=== PATIENT | female | born 1965 | race Two or more races ===

== ENCOUNTER 2025-07-23 08:32 | Emergency (ER) | payer OTHER ==
[~2025-07-23] VITALS: Ht 160 cm; Wt 99.8 kg
[2025-07-23 08:57] LABS: PLATELET COUNT (AUTO) 296 K/uL (150-450); RED BLOOD CELL COUNT(AUTO) 4.34 MIL/uL (4.0-5.2); RED CELL DISTRIBUTION WIDTH 13.4 % (11.5-15.0); WHITE BLOOD COUNT (AUTO) 7.5 K/uL (4.3-11.0)
[2025-07-23] MEDS: IV NS 0.9% 500 ML BAG IV ONE (09:02)
[2025-07-23 09:18] LABS: ASPARTATE AMINOTRANSFERASE 19.0 U/L (15-37); CALCIUM, SERUM 8.9 mg/dL (8.5-10.1); CREATININE 0.7 mg/dL (0.6-1.3); SODIUM SERUM 140.0 mmol/L (136-145); TOTAL PROTEIN, SERUM 7.3 g/dL (6.4-8.2); UREA NITROGEN, BLOOD 17.0 mg/dL (7-18)
[2025-07-23] MEDS ORDERED: ONDANSETRON HCL/PF 4 MG/2 ML VIAL ONE (09:19)
[2025-07-23] MEDS ORDERED: MORPHINE SULFATE INJ 4 MG/ML DISP.SYRIN ONE ×2 (09:19→09:57)
[2025-07-23] MEDS: ONDANSETRON HCL/PF 4 MG/2 ML VIAL IVP ONE (09:27)
[2025-07-23] MEDS: MORPHINE SULFATE INJ 2 MG/ML DISP.SYRIN IV ONE ×2 (09:33→10:11)
[2025-07-23 10:04] LABS: APPEARANCE,URINE CLEAR (CLEAR); BLOOD, URINE 2+ Ery/uL (NEGATIVE); LEUKOCYTE ESTERASE ,URINE 1+ (NEGATIVE); NITRITE, URINE NEGATIVE (NEGATIVE); UGLUCOSE NEGATIVE (NEGATIVE)
[2025-07-23 10:06] LABS: ADD URINE CULTURE YES; SQUAMOUS EPITHELIAL CELL,UR Few /HPF (None Seen)
[2025-07-23] MEDS ORDERED: CEFTRIAXONE 1GM BAG (ER ONLY) 50 ML IV ONE (10:26)
[2025-07-23] MEDS: CEFTRIAXONE 1GM BAG (ER ONLY) 1 GM/50 ML PIGGYBACK IV ONE (10:29)
[2025-07-23] MEDS ORDERED: MORPHINE SULFATE INJ 2 MG/ML DISP.SYRIN IV PRN (12:30)
[2025-07-23] MEDS ORDERED: hydrALAZINE HCL IV 20 MG VIAL IV PRN (12:30)
[2025-07-23] MEDS ORDERED: ONDANSETRON HCL/PF 4 MG/2 ML VIAL IVP PRN (12:30)
[2025-07-23] MEDS ORDERED: ACETAMINOPHEN 325 MG TABLET PO PRN (12:30)
[2025-07-23] MEDS ORDERED: IV NS 0.9% 1,000 ML IV SCH (12:30)
[2025-07-23] MEDS ORDERED: FLUT1DIS5 INH (12:50)
[2025-07-23] MEDS ORDERED: CHOL200010 PO (12:50)
[2025-07-23] MEDS ORDERED: CETI-355 PO (12:50)
[2025-07-23] MEDS ORDERED: SEMA1PEN SQ (12:50)
[2025-07-23] MEDS ORDERED: ALBU2.5V13 NEB (12:50)
[2025-07-23] MEDS ORDERED: IBUP-1953 PO (12:50)
[2025-07-23] MEDS ORDERED: MONT10TA22 PO (12:50)
[2025-07-23] MEDS ORDERED: ATOR40TA PO (12:50)
[2025-07-23] MEDS ORDERED: LOSA25TA27 PO (12:50)
[2025-07-23] MEDS ORDERED: ANAS1TAB50 PO (12:50)
[2025-07-23] MEDS ORDERED: LEVO125T8 PO (12:50)
[2025-07-23] MEDS ORDERED: CLOB15OI3 TP (12:50)
[2025-07-23] MEDS ORDERED: LEVA15HF6 INH (12:50)
[2025-07-23 13:55] VITALS: BP 151/91; O2SAT 95
[2025-07-23] MEDS ORDERED: DOCUSATE SODIUM LIQ 100 MG/10 ML UDC PO SCH (17:00)
[2025-07-23] MEDS ORDERED: HEPARIN SODIUM, PORCINE 5000 UNITS/1 ML VIAL SQ SCH (21:00)
[2025-07-24] MEDS ORDERED: POLYETHYLENE GLYCOL 3350 17 GM POWD.PACK PO SCH (09:00)
[2025-07-24] MEDS ORDERED: CEFTRIAXONE 1 G in IV D5W 50 ML IV SCH (09:00)
== END 2025-07-23 15:49 | disposition short-term general hospital (02) ==
LOC: ER 08:37
DX: R10.31 Right lower quadrant pain (principal); Z90.710 Acquired absence of both cervix and uterus
CPT/HCPCS: 99285; 74176; 96365; 96375; 96361; 96376; 85025; 80048; 87086; 83690; 80076; 81001; 36415; J2270 ×2; J2405; J7030; J0696; J7060